=== PATIENT | male | born 1940 | race Caucasian/White ===

== ENCOUNTER → 2017-01-02 | Outpatient (CLI) | payer OTHER | LOC: BHFA 12:45 | PROVIDERS: ATTEND Internal Medicine Cardiovascular Disease | DX: I47.1 Supraventricular tachycardia (principal); I25.10 Atherosclerotic heart disease of native coronary artery without angina pectoris ==

== ENCOUNTER → 2017-01-15 | Outpatient (CLI) | payer OTHER | LOC: BHFA 13:15 | PROVIDERS: ATTEND Internal Medicine Cardiovascular Disease | DX: I25.10 Atherosclerotic heart disease of native coronary artery without angina pectoris (principal); I47.1 Supraventricular tachycardia; I48.91 Unspecified atrial fibrillation | CPT/HCPCS: 78452; 93017; 93306; A9500 ==

== ENCOUNTER → 2017-04-04 | Outpatient (CLI) | payer OTHER | LOC: BHFA 13:00 | PROVIDERS: ATTEND Internal Medicine Interventional Cardiology | DX: I48.91 Unspecified atrial fibrillation (principal); R06.09 Other forms of dyspnea ==

== ENCOUNTER → 2017-04-04 | Outpatient (CLI) | payer OTHER | LOC: FIMAGING 12:09 | PROVIDERS: ATTEND Internal Medicine Interventional Cardiology | DX: J98.4 Other disorders of lung (principal); R00.2 Palpitations; I47.1 Supraventricular tachycardia ==

== ENCOUNTER → 2017-05-09 | Outpatient (CLI) | payer OTHER | LOC: FIMAGING 14:34 | PROVIDERS: ATTEND Internal Medicine Critical Care Medicine | DX: R09.02 Hypoxemia (principal); R91.8 Other nonspecific abnormal finding of lung field ==

== ENCOUNTER → 2017-07-04 | Outpatient (CLI) | payer OTHER | LOC: FIMAGING 12:58 | PROVIDERS: ATTEND Internal Medicine | DX: Z13.820 Encounter for screening for osteoporosis (principal); M85.89 Other specified disorders of bone density and structure, multiple sites ==

== ENCOUNTER 2017-07-19 23:56 | Emergency (ER) | payer OTHER ==
[2017-07-20] MEDS ORDERED: OXYMETAZOLINE 30 ML NASAL SPRAY ONE (00:12)
[2017-07-20] MEDS ORDERED: LET GEL TOPICAL 1 EA SYR TP ONE (00:16)
[2017-07-20] MEDS ORDERED: SILVER NITRATE APPLICATOR 1 APPL TP ONE ×2 (00:18→00:41)
--- NOTE | 2017-07-20 00:18 | EDPHY ---
H & P Smoking Status: Former smoker Time Seen by Provider: 07/20/17 00:16 HPI/ROS: CHIEF COMPLAINT: Epistaxis x1 hour HISTORY OF PRESENT ILLNESS: 77-year-old male with no anticoagulant use, no coagulopathy, complaining of a right-sided epistaxis x1 hour prior to arrival. No digital trauma. No headache. No chest pain. No nausea no vomiting. No dyspnea. PHYSICAL EXAM (Prior to examination, patient consented to physical exam, hands were washed and my usual and customary physical exam procedures followed) 1) GENERAL: Well-developed, well-nourished, alert and oriented. 2) HEAD: Normocephalic 3) HEENT: sclera anicteric. Right-sided anterior epistaxis noted. 4) LUNGS: Breathing comfortably. (Ludwin Obregon) Constitutional: Initial Vital Signs Heart Rate 71 07/19/17 23:58 Respiratory Rate 18 07/19/17 23:58 Blood Pressure 160/89 H 07/19/17 23:58 O2 Sat (%) 90 L 07/19/17 23:58 O2 Delivery Mode Room Air Allergies/Adverse Reactions: lisinopril Allergy (Verified 07/20/17 00:02) SEASONAL Allergy (Mild, Uncoded 07/20/17 00:02) Other-Enter Comments Home Medications: Medication Instructions Recorded Acetaminophen [Tylenol 325mg (*)] 325 mg PO Q6 PRN 05/23/15 Aspirin [Aspirin 81mg (*)] 81 mg PO DAILY 05/23/15 Atorvastatin Calcium [Lipitor 20 20 mg PO DAILY@1800 05/23/15 mg (*)] Calcium Carbonate/Vitamin D3 1 tab PO DAILY@1800 05/23/15 [Calcium 600 + D Tablet] Cetirizine [ZyrTEC 10 mg (*)] 10 mg PO DAILY 05/23/15 Finasteride [Proscar 5 MG (*)] 5 mg PO DAILY@1800 05/23/15 Fish Oil/Dha/Epa [Fish Oil 1,200 1 cap PO DAILY 05/23/15 mg Fish Oil] Herbals/Supplements -Info Only 1 tab PO AD 05/23/15 Insulin Glargine [Lantus 100 23 units SQ HS 05/23/15 UNITS/ML (*)] Insulin Lispro [Humalog] 9 units SQ AC 05/23/15 Losartan/Hydrochlorothiazide 1 each PO DAILY 05/23/15 [Hyzaar 100-12.5 Tablet] Meclizine HCl [Meclizine HCl 12.5 12.5 mg PO TID PRN 05/23/15 mg (*)] Multivitamins [Multivitamin (*)] 1 tab PO DAILY@1200 05/23/15 Naproxen Sodium [Aleve 220 MG 220 mg PO DAILY PRN 05/23/15 (OTC)] Sitagliptin Phos/Metformin HCl 1 tab PO DAILY 05/23/15 [Janumet 50-1,000 mg Tablet] Tamsulosin HCl [Flomax 0.4 MG (*)] 0.4 mg PO DAILY@1830 05/23/15 Zolpidem Tartrate [Ambien 10 mg] 10 mg PO HS PRN 05/23/15 Levothyroxine Sodium [Levoxyl] 100 mcg PO 07/20/17 MDM/Departure - [facility] Procedures: Procedure: Epistaxis control. Indication: nosebleed not controlled by direct pressure. Risks, benefits, alternatives discussed with patient and consent obtained. The right nares was anesthetized with LAT. The anterior epistaxis was identified. Initial treatment with silver nitrate resulted in breakthrough bleeding. Subsequently rapid rhino packing placed resulting in hemostasis. Following the procedure the patient was re-examined and the bleeding was well controlled. The patient tolerated the procedure well. The procedure was performed by myself. At discharge the patient's nose is hemostatic. (Ludwin Obregon) Medications Given: Discontinued Medications Ondansetron HCl (Zofran Odt) 4 mg PO EDNOW ONE Stop: 07/20/17 01:11 Last Admin: 07/20/17 01:11 Dose: 4 mg Oxymetazoline HCl (Afrin Nasal Pettus) 2 sprays EACHNARE EDNOW ONE Stop: 07/20/17 00:31 Last Admin: 07/20/17 01:15 Dose: Not Given Silver Nitrate/Potassium Nitrate (Silver Nitrate Applicator) 3 each TP EDNOW ONE Stop: 07/20/17 00:19 Last Admin: 07/20/17 00:24 Dose: Not Given Tetracaine/Epinephrine/Lidocaine (Let Gel Topical) 1 ea TP EDNOW ONE Stop: 07/20/17 00:17 Last Admin: 07/20/17 00:24 Dose: Not Given ED Course/Re-evaluation: PHYSICIAN DOCUMENTATION: The patient was evaluated and managed by the Physician Director Radiation Oncology. My co- signature indicates that I have reviewed this chart and I agree with the findings and plan of care as documented. I am the secondary supervising physician. (Kendra Mcallister) - Depart Disposition: Home, Routine, Self-Care Clinical Impression: Acute anterior epistaxis Condition: Good Instructions: Nosebleed (ED) Additional Instructions: Return to the emergency department if you develop recurrent bleeding, if you develop dizziness, chest pain, nausea, vomiting or any other symptoms that concern you. Referrals: Barney Cazares MD [Medical Doctor] - 07/22/17
[2017-07-20] MEDS ORDERED: OXYMETAZOLINE 30 ML NASAL SPRAY EACHNARE ONE (00:30)
[2017-07-20] MEDS ORDERED: ONDANSETRON DISINTEGRATING 4 MG TAB PO ONE (01:10)
[2017-07-20 01:40] VITALS: BP 153/86; PULSE 76; RESP 16; TEMP 98.2; O2SAT 91
== END 2017-07-20 01:39 | disposition home or self-care (01) ==
PROC: 095KXZZ Destruction of Nasal Mucosa and Soft Tissue, External Approach (ICD-10-PCS; principal; 2017-07-19)
DX: R04.0 Epistaxis (principal); Z79.82 Long term (current) use of aspirin; Z87.891 Personal history of nicotine dependence